=== PATIENT | female | born 1980 | race African-American/Black ===

== ENCOUNTER 2020-07-29 11:25 | Observation (INO) | payer MEDICAID ==
[2020-07-29] MEDS ORDERED: PREN-96 PO (14:05)
== END 2020-07-29 14:13 | disposition home or self-care (01) ==
LOC: LDRP 11:25
PROVIDERS: ADMIT Obstetrics & Gynecology; ATTEND Obstetrics & Gynecology
DX: O40.2XX0 Polyhydramnios, second trimester, not applicable or unspecified (principal); Z3A.25 25 weeks gestation of pregnancy
CPT/HCPCS: 59025; 76815; 81002; G0378

== ENCOUNTER 2020-08-04 11:50 | Observation (INO) | payer MEDICAID ==
[~2020-08-04 11:50] MED LIST: PREN-96 PO
== END 2020-08-04 13:15 | disposition home or self-care (01) ==
LOC: LDRP 11:50
PROVIDERS: ADMIT Specialist; ATTEND Specialist
DX: O40.2XX0 Polyhydramnios, second trimester, not applicable or unspecified (principal); O41.02X0 Oligohydramnios, second trimester, not applicable or unspecified; Z3A.26 26 weeks gestation of pregnancy
CPT/HCPCS: 59025; 81002; 82962; G0378

== ENCOUNTER 2020-08-17 10:20 | Observation (INO) | payer MEDICAID ==
[2020-08-17] MEDS ORDERED: NIF10C PO (11:32)
== END 2020-08-17 12:32 | disposition home or self-care (01) ==
LOC: LDRP 10:20
PROVIDERS: ADMIT Specialist; ATTEND Specialist
DX: O60.02 Preterm labor without delivery, second trimester (principal); O40.2XX0 Polyhydramnios, second trimester, not applicable or unspecified; O24.419 Gestational diabetes mellitus in pregnancy, unspecified control; O26.892 Other specified pregnancy related conditions, second trimester; N89.8 Other specified noninflammatory disorders of vagina; Z3A.27 27 weeks gestation of pregnancy
CPT/HCPCS: 59025; 76818; 81002; 82962; G0378

== ENCOUNTER 2020-08-25 09:10 | Observation (INO) | payer MEDICAID ==
[~2020-08-25 09:10] MED LIST changes: +NIF10C PO
== END 2020-08-25 11:00 | disposition home or self-care (01) ==
LOC: LDRP 09:10
PROVIDERS: ADMIT Specialist; ATTEND Specialist
DX: O60.03 Preterm labor without delivery, third trimester (principal); O40.3XX0 Polyhydramnios, third trimester, not applicable or unspecified; O09.523 Supervision of elderly multigravida, third trimester; O24.410 Gestational diabetes mellitus in pregnancy, diet controlled; Z3A.29 29 weeks gestation of pregnancy
CPT/HCPCS: 59025; 76818; 81002; 82948; 82962; G0378

== ENCOUNTER 2020-08-28 09:06 | Observation (INO) | payer MEDICAID ==
[~2020-08-28] VITALS: Ht 162.6 cm; Wt 78.0 kg
== END 2020-08-28 12:00 | disposition home or self-care (01) ==
LOC: LDRP 09:06 → UNDOADMOB 09:06 → UNDODISOB 12:00
PROVIDERS: ADMIT Obstetrics & Gynecology; ATTEND Obstetrics & Gynecology
DX: O24.419 Gestational diabetes mellitus in pregnancy, unspecified control (principal); O40.3XX0 Polyhydramnios, third trimester, not applicable or unspecified; Z3A.29 29 weeks gestation of pregnancy
CPT/HCPCS: 59025; 76818; 81002; 82948; 82962; G0378

== ENCOUNTER 2020-09-01 09:21 | Observation (INO) | payer MEDICAID ==
[~2020-09-01] VITALS: Ht 162.6 cm; Wt 78.0 kg
== END 2020-09-01 13:05 | disposition home or self-care (01) ==
LOC: LDRP 09:21
PROVIDERS: ADMIT Specialist; ATTEND Specialist
DX: O24.419 Gestational diabetes mellitus in pregnancy, unspecified control (principal); O40.3XX0 Polyhydramnios, third trimester, not applicable or unspecified; O42.913 Preterm premature rupture of membranes, unspecified as to length of time between rupture and onset of labor, third trimester; Z3A.30 30 weeks gestation of pregnancy
CPT/HCPCS: 59025; 76818; 81002; 82948; 82962; 84112; G0378; Q0114

== ENCOUNTER 2020-09-04 09:00 | Observation (INO) | payer MEDICAID | END 2020-09-04 11:18 | disposition home or self-care (01) | LOC: LDRP 09:00 | PROVIDERS: ADMIT Specialist; ATTEND Specialist | DX: O24.419 Gestational diabetes mellitus in pregnancy, unspecified control (principal); O40.3XX0 Polyhydramnios, third trimester, not applicable or unspecified; O60.03 Preterm labor without delivery, third trimester; Z3A.30 30 weeks gestation of pregnancy | CPT/HCPCS: 59025; 76818; 81002; 82962; G0378 ==

== ENCOUNTER 2020-09-08 09:11 | Observation (INO) | payer MEDICAID | END 2020-09-08 10:55 | disposition home or self-care (01) | LOC: LDRP 09:11 | PROVIDERS: ADMIT Specialist; ATTEND Specialist | DX: O24.419 Gestational diabetes mellitus in pregnancy, unspecified control (principal); O60.03 Preterm labor without delivery, third trimester; O40.3XX0 Polyhydramnios, third trimester, not applicable or unspecified; Z3A.31 31 weeks gestation of pregnancy | CPT/HCPCS: 59025; 76818; 81002; 82948; 82962; G0378 ==

== ENCOUNTER 2023-05-25 18:15 | Observation (INO) | payer MEDICAID | END 2023-05-25 19:28 | disposition home or self-care (01) | LOC: LDRP 18:15 | PROVIDERS: ADMIT Obstetrics & Gynecology; ATTEND Obstetrics & Gynecology | DX: O26.892 Other specified pregnancy related conditions, second trimester (principal); R42 Dizziness and giddiness; R51.9 Headache, unspecified; R11.0 Nausea; Z3A.21 21 weeks gestation of pregnancy | CPT/HCPCS: 82948; 82962; 94760; G0378 ==

== ENCOUNTER 2023-08-08 16:20 | Observation (INO) | payer MEDICAID | END 2023-08-08 18:58 | disposition home or self-care (01) | LOC: LDRP 16:20 → UNDOADMOB 16:20 → LDRP 16:30 → UNDODISOB 18:58 | PROVIDERS: ADMIT Obstetrics & Gynecology; ATTEND Obstetrics & Gynecology | DX: O24.419 Gestational diabetes mellitus in pregnancy, unspecified control (principal); O62.9 Abnormality of forces of labor, unspecified; Z3A.31 31 weeks gestation of pregnancy | CPT/HCPCS: 59025; 76818; 81002; 82948; 82962; 94760; G0378 ==

== ENCOUNTER 2023-08-11 17:15 | Observation (INO) | payer MEDICAID ==
[2023-08-11] MEDS ORDERED: GLYB1.257 PO (20:34)
== END 2023-08-11 20:48 | disposition home or self-care (01) ==
LOC: LDRP 17:15
PROVIDERS: ADMIT Obstetrics & Gynecology; ATTEND Obstetrics & Gynecology
DX: O24.419 Gestational diabetes mellitus in pregnancy, unspecified control (principal); O62.9 Abnormality of forces of labor, unspecified; Z3A.31 31 weeks gestation of pregnancy
CPT/HCPCS: 59025; 76818; 81002; 82948; 82962; G0378

== ENCOUNTER 2023-08-13 16:10 | Observation (INO) | payer MEDICAID ==
[~2023-08-13 16:10] MED LIST changes: +GLYB1.257 PO
== END 2023-08-13 17:31 | disposition home or self-care (01) ==
LOC: LDRP 16:10
PROVIDERS: ADMIT Obstetrics & Gynecology; ATTEND Obstetrics & Gynecology
DX: O24.419 Gestational diabetes mellitus in pregnancy, unspecified control (principal); O26.893 Other specified pregnancy related conditions, third trimester; H53.8 Other visual disturbances; Z3A.32 32 weeks gestation of pregnancy
CPT/HCPCS: 59025; 76818; 81002; 82948; G0378

== ENCOUNTER 2023-08-16 16:05 | Observation (INO) | payer MEDICAID | END 2023-08-16 17:45 | disposition home or self-care (01) | LOC: LDRP 16:05 | PROVIDERS: ADMIT Obstetrics & Gynecology; ATTEND Obstetrics & Gynecology | DX: O24.419 Gestational diabetes mellitus in pregnancy, unspecified control (principal); Z3A.32 32 weeks gestation of pregnancy | CPT/HCPCS: 59025; 76818; 81002; 82948; 94760; G0378 ==

== ENCOUNTER 2023-08-21 16:16 | Observation (INO) | payer MEDICAID ==
[~2023-08-21] VITALS: Ht 162.6 cm; Wt 74.4 kg
[2023-08-21] MEDS ORDERED: LACTATED RINGER'S 1,000 ML IV ONE (17:15)
[2023-08-21] MEDS ORDERED: TERBUTALINE SULFATE 1 MG/ML 1ML VIAL SC SCH (17:15)
== END 2023-08-21 18:15 | disposition home or self-care (01) ==
LOC: LDRP 16:16 → UNDOADMOB 16:16 → LDRP 16:20 → UNDODISOB 18:15
PROVIDERS: ADMIT Obstetrics & Gynecology; ATTEND Obstetrics & Gynecology
DX: O24.419 Gestational diabetes mellitus in pregnancy, unspecified control (principal); O62.9 Abnormality of forces of labor, unspecified; Z3A.33 33 weeks gestation of pregnancy
CPT/HCPCS: 59025; 76818; 81002; 82948; 82962; 94760; 96360; 96361; 96372; G0378; J3105

== ENCOUNTER 2023-08-24 12:24 | Observation (INO) | payer MEDICAID ==
[~2023-08-24 12:24] MED LIST changes: -NIF10C PO
== END 2023-08-24 14:48 | disposition home or self-care (01) ==
LOC: UNDOADMOB 12:24 → LDRP 12:24
PROVIDERS: ADMIT Obstetrics & Gynecology; ATTEND Obstetrics & Gynecology
DX: O24.419 Gestational diabetes mellitus in pregnancy, unspecified control (principal); Z3A.34 34 weeks gestation of pregnancy
CPT/HCPCS: 76818; 82962; G0378; 59025; 81002; 82948; 94760

== ENCOUNTER 2023-08-28 16:15 | Observation (INO) | payer MEDICAID | END 2023-08-28 17:29 | disposition home or self-care (01) | LOC: LDRP 16:15 → UNDOADMOB 16:15 → LDRP 16:21 → UNDODISOB 17:29 | PROVIDERS: ADMIT Obstetrics & Gynecology; ATTEND Obstetrics & Gynecology | DX: O24.419 Gestational diabetes mellitus in pregnancy, unspecified control (principal); O26.893 Other specified pregnancy related conditions, third trimester; R10.30 Lower abdominal pain, unspecified; Z3A.34 34 weeks gestation of pregnancy | CPT/HCPCS: 59025; 76818; 81002; 82948; 94760; G0378 ==

== ENCOUNTER 2023-08-31 16:14 | Observation (INO) | payer MEDICAID | END 2023-08-31 17:40 | disposition home or self-care (01) | LOC: LDRP 16:14 | PROVIDERS: ADMIT Obstetrics & Gynecology; ATTEND Obstetrics & Gynecology | DX: O24.419 Gestational diabetes mellitus in pregnancy, unspecified control (principal); Z3A.35 35 weeks gestation of pregnancy | CPT/HCPCS: 59025; 76818; 81002; 82962; 94760; G0378 ==

== ENCOUNTER 2023-09-04 15:58 | Observation (INO) | payer MEDICAID ==
[2023-09-04] MEDS ORDERED: TERBUTALINE SULFATE 1 MG/ML 1ML VIAL SC ONE ×2 (18:45)
== END 2023-09-04 19:50 | disposition home or self-care (01) ==
LOC: LDRP 15:58 → UNDOADMOB 15:58 → LDRP 16:28 → UNDODISOB 19:50
PROVIDERS: ADMIT Obstetrics & Gynecology; ATTEND Obstetrics & Gynecology
DX: O24.419 Gestational diabetes mellitus in pregnancy, unspecified control (principal); O26.893 Other specified pregnancy related conditions, third trimester; N89.8 Other specified noninflammatory disorders of vagina; Z3A.35 35 weeks gestation of pregnancy
CPT/HCPCS: 59025; 76818; 81002; 82962; 94760; 96372; G0378; J3105

== ENCOUNTER 2023-09-07 08:02 | Observation (INO) | payer MEDICAID | END 2023-09-07 10:22 | disposition home or self-care (01) | LOC: LDRP 08:02 → UNDOADMOB 08:02 → LDRP 08:19 | PROVIDERS: ADMIT Obstetrics & Gynecology; ATTEND Obstetrics & Gynecology | DX: O24.419 Gestational diabetes mellitus in pregnancy, unspecified control (principal); O36.63X0 Maternal care for excessive fetal growth, third trimester, not applicable or unspecified; O62.9 Abnormality of forces of labor, unspecified; Z3A.36 36 weeks gestation of pregnancy | CPT/HCPCS: 59025; 76818; 81002; 82948; 82962; 94760; G0378 ==

== ENCOUNTER 2023-09-08 17:09 | Observation (INO) | payer MEDICAID | END 2023-09-08 18:03 | disposition home or self-care (01) | LOC: LDRP 17:09 | PROVIDERS: ADMIT Obstetrics & Gynecology; ATTEND Obstetrics & Gynecology | DX: O62.9 Abnormality of forces of labor, unspecified (principal); O24.419 Gestational diabetes mellitus in pregnancy, unspecified control; O26.893 Other specified pregnancy related conditions, third trimester; N89.8 Other specified noninflammatory disorders of vagina; R10.30 Lower abdominal pain, unspecified; Z3A.36 36 weeks gestation of pregnancy | CPT/HCPCS: 59025; 94760; G0378 ==

== ENCOUNTER 2023-09-11 16:00 | Observation (INO) | payer MEDICAID | END 2023-09-11 17:50 | disposition home or self-care (01) | LOC: UNDOADMOB 16:00 → LDRP 16:00 → UNDODISOB 17:50 | PROVIDERS: ADMIT Obstetrics & Gynecology; ATTEND Obstetrics & Gynecology | DX: O24.419 Gestational diabetes mellitus in pregnancy, unspecified control (principal); O62.9 Abnormality of forces of labor, unspecified; O26.893 Other specified pregnancy related conditions, third trimester; R10.9 Unspecified abdominal pain; Z3A.36 36 weeks gestation of pregnancy | CPT/HCPCS: 59025; 76818; 81002; 82948; 82962; 94760; G0378 ==

== ENCOUNTER 2023-09-14 16:18 | Observation (INO) | payer MEDICAID | END 2023-09-14 18:55 | disposition home or self-care (01) | LOC: UNDOADMOB 16:18 → LDRP 16:18 → UNDODISOB 18:55 | PROVIDERS: ADMIT Obstetrics & Gynecology; ATTEND Obstetrics & Gynecology | DX: O24.419 Gestational diabetes mellitus in pregnancy, unspecified control (principal); O26.893 Other specified pregnancy related conditions, third trimester; R10.9 Unspecified abdominal pain; O09.523 Supervision of elderly multigravida, third trimester; Z3A.37 37 weeks gestation of pregnancy | CPT/HCPCS: 59025; 76818; 81002; 82948; 82962; 94760; G0378 ==

== ENCOUNTER 2023-09-18 16:30 | Observation (INO) | payer MEDICAID | END 2023-09-18 18:57 | disposition home or self-care (01) | LOC: LDRP 16:30 | PROVIDERS: ADMIT Obstetrics & Gynecology; ATTEND Obstetrics & Gynecology | DX: O24.419 Gestational diabetes mellitus in pregnancy, unspecified control (principal); O36.63X0 Maternal care for excessive fetal growth, third trimester, not applicable or unspecified; O40.3XX0 Polyhydramnios, third trimester, not applicable or unspecified; Z3A.37 37 weeks gestation of pregnancy | CPT/HCPCS: 59025; 76818; 81002; 82948; 82962; 94760; G0378 ==

== ENCOUNTER 2023-09-20 16:05 | Inpatient (IN) | payer MEDICAID ==
[~2023-09-20] VITALS: Ht 162.6 cm; Wt 78.0 kg
[2023-09-20] MEDS ORDERED: PROMETHAZINE HCL 25 MG/ML 1ML IM PRN (16:45)
[2023-09-20] MEDS ORDERED: DERMOPLAST 60ML BOTTLE TOP PRN (16:45)
[2023-09-20] MEDS ORDERED: PHISODERM TOP SOLN 240ML BTL TOP PRN (16:45)
[2023-09-20] MEDS ORDERED: BUTORPHANOL TARTRATE 2 MG/1 ML VIAL IV PRN ×2 (16:45)
[2023-09-20] MEDS ORDERED: PROMETHAZINE HCL 25 MG/ML 1ML IV PRN (16:45)
[2023-09-20] MEDS ORDERED: LACT. RINGERS/OXYTOCIN 20UNITS 500 ML IV ONE ×2 (16:45→17:15)
[2023-09-20] MEDS ORDERED: LIDOCAINE 2%HCL (LOCAL ANESTH.) INJ 20ML MDV IJ PRN (16:45)
[2023-09-20] MEDS ORDERED: WITCH HAZEL-GLYCERIN PAD TOP PRN (16:45)
[2023-09-20] MEDS: LACTATED RINGER'S 1,000 ML IV SCH (17:23)
[2023-09-20 17:29] LABS: Basophils # (auto) 0 10 ^3/uL (0-0.2); Basophils % (auto) 0.7 % (0.0-2.0); Eosinophils # (auto) 0 10 ^3/uL (0-0.8); Eosinophils % (auto) 0.8 % (0.0-7.0); Hematocrit 36.1 % (36.0-46.0); Hemoglobin 12.4 g/dL (12.2-16.2); Lymphocytes # (auto) 1.3 10 ^3/uL (0.4-5.4); Lymphocytes % (auto) 34.6 % (10.0-50.0); Mean Corpuscular Hemoglobin 28.7 pg (28.0-32.0); Mean Corpuscular Hgb Conc. 34.4 g/dL (32.0-36.0); Mean Corpuscular Volume 83.3 fL (80.0-100.0); Monocytes # (auto) 0.4 10 ^3/uL (0-1.3); Monocytes % (auto) 10.7 % (0.0-12.0); Neutrophils # (auto) 2.1 10 ^3/uL (1.6-8.6); Neutrophils % (auto) 53.2 % (37.0-80.0); Nucleated Red Blood Cells % 0.1 %; Red Blood Cells 4.34 10^6/uL (4.0-5.20); Red Cell Distribution Width 14.4 % (11.8-14.3); White Blood Cell 3.9 10^3/uL (4.4-10.8)
[2023-09-20 17:33] LABS: Urine Amorphous Crystal FEW /hpf (None Seen); Urine Bacteria FEW /hpf (None Seen); Urine Blood Negative /uL (Negative); Urine Clarity HAZY (Clear); Urine Color Yellow (Yellow); Urine Mucus FEW (None Seen); Urine Protein, UAD TRACE (Negative); Urine Specific Gravity 1.011 (1.001-1.035); Urine WBC 13 /hpf (0 - 5)
[2023-09-20 17:49] LABS: INR 0.93 (0.9-1.15); Partial Thromboplastin Time 30.5 SEC (24.5-34.5); Prothrombin Time 9.8 sec (9.3-11.8)
[2023-09-20 17:51] LABS: Amphetamine Screen, Urine Neg (NEGATIVE); Barbiturate Scree,Urine Neg (NEGATIVE); Benzodiazephine Screen, Urine Neg (NEGATIVE); Cannabinoid Screen, Urine Neg (NEGATIVE); Cocaine Screen, Urine Neg (NEGATIVE); Opiate Scree,Urine Neg (NEGATIVE); Phencyclidine Screen, Urine Neg (NEGATIVE)
[2023-09-20 17:53] LABS: Alanine Aminotransferase 28 U/L (7-40); Albumin 3.5 g/dL (3.2-4.8); Alkaline Phosphatase 233 U/L (46-116); Anion Gap 6 (5-15); Aspartate Aminotransferase 24 U/L (13-40); Calcium 8.7 mg/dL (8.7-10.4); Carbon Dioxide 25 mmol/L (20-30); Chloride 107 mmol/L (98-107); Glucose 81 mg/dL (74-106); Potassium 3.3 mmol/L (3.5-5.1); Sodium 138 mmol/L (136-145)
[2023-09-20 17:54] LABS: Bilirubin, Total 1.5 mg/dL (0.2-1.0); Total Protein 6.2 g/dL (5.7-8.2)
[2023-09-20] MEDS ORDERED: ACCU-CHEK COMFORT CURVE STRIP VI SCH (18:00)
[2023-09-20 18:44] LABS: BUN/Creatinine Ratio 11.1 (10.0-20.0); Blood Urea Nitrogen < 5 mg/dL (9-23)
[2023-09-20] MEDS ORDERED: TRANEXAMIC ACID 1,000 MG in SODIUM CHL 0.9% 100 ML IV ONE (19:45)
[2023-09-20] MEDS ORDERED: CARBOPROST TROMETHAMINE 250 MCG/1ML VIAL IM PRN (19:45)
[2023-09-20] MEDS ORDERED: miSOPROStol 100 mcg TAB PR PRN (19:45)
[2023-09-20] MEDS ORDERED: diphenhdrAMINE HCL 50 MG/1 ML VL IV PRN (19:45)
[2023-09-20] MEDS ORDERED: ONDANSETRON HCL 4 MG/2 ML VIAL IV PRN (19:45)
[2023-09-20] MEDS ORDERED: miSOPROStol 100 mcg TAB SL PRN (19:45)
[2023-09-20] MEDS ORDERED: METHYLERGONOVINE MALEATE 0.2 MG/ML AMP IM PRN (19:45)
[2023-09-20] MEDS ORDERED: CALCIUM CARB 500 MG CHEW TAB PO ONE (21:45)
[2023-09-20] MEDS ORDERED: PANTOPRAZOLE 40 MG TAB PO PRN (22:00)
[2023-09-20] MEDS ORDERED: DIPHENOXYLATE W/ATROPINE 2.5 MG TAB PO SCH (22:00)
[2023-09-21] MEDS ORDERED: miSOPROStol 50 MCG per PRE-CUT 1/2 TAB PO PRN (01:15)
[2023-09-21] MEDS: LACTATED RINGER'S 1,000 ML IV SCH (01:45)
[2023-09-21] MEDS ORDERED: TERBUTALINE SULFATE 1 MG/ML 1ML VIAL SC ONE (02:04)
[2023-09-21] MEDS ORDERED: BUTORPHANOL TARTRATE 2 MG/1 ML VIAL ONE (02:23)
[2023-09-21] MEDS ORDERED: ceFAZolin 2 GM/D5W100ml 100 ML IV ONE (02:30)
[2023-09-21] MEDS ORDERED: TERBUTALINE SULFATE 1 MG/ML 1ML VIAL SC SCH (02:45)
[2023-09-21] MEDS ORDERED: fentaNYL CITRATE 100 MCG/2 ML VL IV ONE (05:45)
[2023-09-21] MEDS ORDERED: LIDOCAINE HCL 2 %PF INJ 10ML AMP IJ ONE (05:45)
[2023-09-21] MEDS ORDERED: LACTATED RINGER'S 500 ML IV ONE (05:45)
[2023-09-21] MEDS ORDERED: fentaNYL 400mCg/200ml W ROPIVA 200 ML EPI SCH (05:45)
[2023-09-21] MEDS ORDERED: NALOXONE HCL 0.4 MG/ML VIAL IV ONE (05:45)
[2023-09-21] MEDS ORDERED: ePHEDrine SULFATE 50 MG/ML AMP IV ONE (05:45)
[2023-09-21 06:06] LABS: RPR Non Reactive (Non Reactive)
[2023-09-21] MEDS ORDERED: ROPIVACAINE HCL 100 ML ONE (06:23)
[2023-09-21] MEDS ORDERED: ACETAMINOPHEN 325 MG TAB PO PRN (08:15)
[2023-09-21] MEDS ORDERED: ONDANSETRON ODT 4 MG TAB PO PRN (08:15)
[2023-09-21] MEDS: IBUPROFEN 600 MG TAB PO PRN ×2 (09:45→18:40)
[2023-09-21 10:50] VITALS: PULSE 86; RESP 18; O2SAT 98
[2023-09-21] MEDS: ceFAZolin 1GM/50ML 50 ML IV SCH ×2 (11:08→18:40)
[2023-09-21 15:00] VITALS: BP 116/65; PULSE 77; RESP 16; TEMP 98.2; O2SAT 97
[2023-09-21] MEDS ORDERED: IBU600T PO (17:43)
[2023-09-21 18:45] VITALS: BP 113/60; PULSE 80; RESP 16; TEMP 98.2; O2SAT 96
[2023-09-21 20:41] VITALS: BP 113/60; PULSE 80; RESP 16; TEMP 98.2; O2SAT 96
[2023-09-21] MEDS ORDERED: DOCUSATE SOD 100 MG CAP PO SCH (22:00)
[2023-09-24 19:06] LABS: Treponema pallidum Ab (FTA-Ab) Non Reactive (Non Reactive)
== END 2023-09-21 20:31 | disposition home or self-care (01) | DRG 560 ==
LOC: NUR 16:05 → LDRP 16:10
PROVIDERS: ADMIT Obstetrics & Gynecology; ATTEND Obstetrics & Gynecology
PROC: 10E0XZZ Delivery of Products of Conception, External Approach (ICD-10-PCS; principal; 2023-09-20)
PROC: 3E0R3BZ Introduction of Anesthetic Agent into Spinal Canal, Percutaneous Approach (ICD-10-PCS; 2023-09-20)
PROC: 00HU33Z Insertion of Infusion Device into Spinal Canal, Percutaneous Approach (ICD-10-PCS; 2023-09-20)
DX: O24.429 Gestational diabetes mellitus in childbirth, unspecified control (principal); Z37.0 Single live birth; O36.63X0 Maternal care for excessive fetal growth, third trimester, not applicable or unspecified; Z3A.38 38 weeks gestation of pregnancy
CPT/HCPCS: 36415; 59025; 59409; 62282; 80053; 80307; 81001; 81002; 82962; 85025; 85610; 85730; 86592; 86850; 86900; 86901; 94760; 96360; 96361; 96366; 96372; G0378; J2590

== ENCOUNTER 2025-03-31 10:22 | Observation (INO) | payer MEDICAID ==
[~2025-03-31 10:22] MED LIST changes: -GLYB1.257 PO; +IBU600T PO
[2025-03-31 11:28] LABS: Urine Protein, UAD Negative (Negative)
[2025-03-31 11:33] LABS: Albumin 3.7 g/dL (3.2-4.8); Alkaline Phosphatase 74 U/L (46-116); Anion Gap 7 (5-15); BUN/Creatinine Ratio 8.9 (10.0-20.0); Calcium 9.0 mg/dL (8.7-10.4); Carbon Dioxide 25 mmol/L (20-31); Chloride 105 mmol/L (98-107); Potassium 3.5 mmol/L (3.5-5.1); Sodium 137 mmol/L (136-145); Total Protein 6.1 g/dL (5.7-8.2); Uric Acid 3.6 mg/dL (3.1-7.8)
[2025-03-31 11:34] LABS: Bilirubin, Total 0.9 mg/dL (0.2-1.0)
[2025-03-31 11:36] LABS: Alanine Aminotransferase < 9 U/L (7-40); Blood Urea Nitrogen 5 mg/dL (9-23); Glucose 132 mg/dL (74-106)
[2025-03-31 11:41] LABS: Hematocrit 34.0 % (36.0-46.0); Hemoglobin 11.8 g/dL (12.2-16.2); Mean Corpuscular Hemoglobin 29.3 pg (28.0-32.0); Mean Corpuscular Volume 84.7 fL (80.0-100.0); Nucleated Red Blood Cells % 0.2 %
[2025-03-31 11:58] LABS: Protein, Urine 19.7 mg/dL (1-14)
[2025-03-31 11:58] LABS: INR 0.98 (0.9-1.15); Partial Thromboplastin Time 28.0 SEC (24.5-34.5); Prothrombin Time 10.4 sec (9.3-11.8)
--- NOTE | 2025-03-31 17:54 | DVHDS2 ---
Physician Discharge Progress N Final Diagnosis: testing for GDM, A1 and PIH labs Operations or Procedures: Operations or Procedures 44yo IUP@29.1wks, sent down for NST/BPP and PIH labs. Denies UCs/LOF/VB/SIMMONS/vision changes/RUQ pain. Endorses +FM. VSS NST reactive FKC/PTL/PreE precautions reviewed f/u in 1 wk with [address] Hess consulted, agrees with POC Laboratory Tests Test 03/31/25 10:15 03/31/25 10:50 Range/Units Urine Color Light-orange Yellow Urine Clarity Turbid H Clear Urine pH 6.0 5.0-9.0 Urine Specific [place] 1.013 1.001-1.035 Urine Protein Negative Negative Urine Ketones Trace Negative Urine Blood Negative Negative /uL Urine Nitrite Negative Negative Urine Bilirubin Negative Negative Urine Urobilinogen Normal Negative mg/dL Urine Leukocyte Esterase Negative Negative /uL Urine RBC 2 0 - 4 /hpf Urine Microscopic WBC 2 0-5 /HPF Urine Squamous Epithelial Cells Many <5 /hpf Urine Bacteria Few H None Seen /hpf Urine Mucus Few None Seen Urine Creatinine 90.42 30.0-125.0 mg/dL Creatinine Clearance Pending Urine Protein/Creatinine Ratio 0.22 Urine Glucose Normal Normal mg/dL Urine Total Protein 19.7 H 1-14 mg/dL Creatinine Pending 0.56 0.550-1.02 mg/dL White Blood Count 6.0 4.4-10.8 10^3/uL Red Blood Count 4.02 4.0-5.20 10^6/uL Hemoglobin 11.8 L 12.2-16.2 g/dL Hematocrit 34.0 L 36.0-46.0 % Mean Corpuscular Volume 84.7 80.0-100.0 fL Mean Corpuscular Hemoglobin 29.3 28.0-32.0 pg Mean Corpuscular Hemoglobin Concent 34.6 32.0-36.0 g/dL Red Cell Distribution Width 14.6 H 11.8-14.3 % Platelet Count 185 140-450 10^3/uL Mean Platelet Volume 9.3 6.9-10.8 fL Neutrophils (%) (Auto) 65.6 37.0-80.0 % Lymphocytes (%) (Auto) 24.9 10.0-50.0 % Monocytes (%) (Auto) 7.5 0.0-12.0 % Eosinophils (%) (Auto) 1.6 0.0-7.0 % Basophils (%) (Auto) 0.4 0.0-2.0 % Neutrophils # (Auto) 3.9 1.6-8.6 10 ^3/uL Lymphocytes # (Auto) 1.5 0.4-5.4 10 ^3/uL Monocytes # (Auto) 0.5 0-1.3 10 ^3/uL Eosinophils # (Auto) 0.1 0-0.8 10 ^3/uL Basophils # (Auto) 0 0-0.2 10 ^3/uL Nucleated Red Blood Cells 0.2 % Prothrombin Time 10.4 9.3-11.8 sec Prothrombin Time INR 0.98 0.9-1.15 Activated Partial Thromboplast Time 28.0 24.5-34.5 SEC Sodium Level 137 136-145 mmol/L Potassium Level 3.5 3.5-5.1 mmol/L Chloride Level 105 98-107 mmol/L Carbon Dioxide Level 25 20-31 mmol/L Anion Gap 7 5-15 Blood Urea Nitrogen 5 L 9-23 mg/dL Glomerular Filtration Rate Calc 116 >90 mL/min BUN/Creatinine Ratio 8.9 L 10.0-20.0 Serum Glucose 132 H 74-106 mg/dL Uric Acid 3.6 3.1-7.8 mg/dL Calcium Level 9.0 8.7-10.4 mg/dL Total Bilirubin 0.9 0.2-1.0 mg/dL Aspartate Amino Transferase (AST) 13 13-40 U/L Alanine Aminotransferase (ALT) < 9 7-40 U/L Alkaline Phosphatase 74 46-116 U/L Total Protein 6.1 5.7-8.2 g/dL Albumin 3.7 3.2-4.8 g/dL Condition on Discharge: Stable Disposition: Home Discharge Instructions: Diet: Consistent carbohydrate Activity: No Restrictions, As Tolerated Medications: see med list Follow Up Care: Specialist: f/u in 1 wk Discharge Statement: "Patient was advised to return to the ER or call 911 if any headaches, dizziness, shortness of breath, chest pain, abdominal pain, bleeding, fevers, or worsening of medical condition. Patient was counseled about treatment plan, medications, possible side effects, patientverbalized understanding. All questions were answered to the best of my ability. This discharge took greater then 30 minutes in planning, reviewing documentation, counseling the patient, and discussing with other team members." Visit Coding OBGYN Date of Service: Mar 31, 2025 Billing Provider: CARO CARABALLO CNM GARAGE MECHANIC Common Visit Codes: [id number] OBS CARE (HIGH) GARAGE MECHANIC Procedure Codes: 47956-63- NON-STRESS TEST CARO CARABALLO CNM Mar 31, 2025 17:54
== END 2025-03-31 12:35 | disposition home or self-care (01) ==
LOC: LDRP 10:22 → UNDOADMOB 10:22 → LDRP 10:33 → UNDODISOB 12:35
PROVIDERS: ADMIT Obstetrics & Gynecology; ATTEND Obstetrics & Gynecology
DX: O24.419 Gestational diabetes mellitus in pregnancy, unspecified control (principal); O13.3 Gestational [pregnancy-induced] hypertension without significant proteinuria, third trimester; Z3A.29 29 weeks gestation of pregnancy; Z98.890 Other specified postprocedural states; Z79.899 Other long term (current) drug therapy
CPT/HCPCS: 59025; 80053; 81001; 81002; 82570; 84156; 84550; 85610; 85730; 94760; G0378

== ENCOUNTER 2025-04-07 11:47 | Observation (INO) | payer MEDICAID ==
[~2025-04-07] VITALS: Ht 162.6 cm; Wt 72.6 kg
[2025-04-07] MEDS: NIFEdipine 10 MG CAP PO ONE (13:27)
[2025-04-07] MEDS: TERBUTALINE SULFATE 1 MG/ML 1ML VIAL SC SCH (13:27)
[2025-04-07] MEDS: BETAMETHASONE ACET (30mg/5ml) 5ml Vial 6mg/ml IM ONE (13:28)
[2025-04-07] MEDS: LACTATED RINGER'S 1,000 ML IV ONE (13:28)
--- NOTE | 2025-04-07 13:58 | DVH ---
LIMITED OB ULTRASOUND > 14 WKS: HISTORY: PTL TECHNIQUE: Multiple real-time grayscale images of the gravid uterus with duplex Doppler color flow an d M-mode spectral analysis. TRANSDUCER: Transabdominal COMPARISON: None FINDINGS/IMPRESSION: heart rate 142 beats per minute KARINA 22.6cm, deepest pocket measures 6.3 cm Cervix is closed and measures 2.9 cm. Anterior Presentation Maternal left Placenta without previa or abruption.
[2025-04-07] MEDS ORDERED: NIFE10CA52 PO (14:29)
--- NOTE | 2025-04-07 18:03 | DVHDS2 ---
Physician Discharge Progress N Final Diagnosis: PTL testing for GDM, A1 rule out preE Operations or Procedures: Operations or Procedures 44yo IUP@30.1wks, Denies LOF/VB/SIMMONS/vision changes/RUQ pain. Endorses +FM. +UCs/cramping. Pt did not collect 24 hour urine correctly, needs to redo it. VSS except hypertension NST reactive 1L LR IV bolus, procardia 10mg PO x1, betamethasone IM first dose given. FKC/PTL/PreE precautions reviewed Dr. Hess consulted, agrees with POC. Rx sent for procardia 10mg PO q4hrs. f/u 04/08/25 for second betamethasone. Other Interventions Other Interventions [place] [address] Ph: [phone] DIAGNOSTIC IMAGING Diagnostic Imaging Report : [id number] Signed PATIENT: ALFONSO PATE ACCT: [id number] UNIT: [id number] : 1980 LOC: [facility] ROOM / BED: [facility] / A AGE / SEX: 44 / F ADM STATUS: ADM IN SERVICE 1250 ORDERING PHYSICIAN: CARO CARABALLO CNM PROCEDURE(s): OBLTD - OBSTERICAL LIMITED REASON: PTL ORDER NUMBER(s): [id number], ACCESSION NUMBER(s): [id number] LIMITED OB ULTRASOUND > 14 WKS: HISTORY: PTL TECHNIQUE: Multiple real-time grayscale images of the gravid uterus with duplex Doppler color flow and M-mode spectral analysis. TRANSDUCER: Transabdominal COMPARISON: None FINDINGS/IMPRESSION: heart rate 142 beats per minute KARINA 22.6cm, deepest pocket measures 6.3 cm Cervix is closed and measures 2.9 cm. Anterior Presentation Maternal left Placenta without previa or abruption. ATED BY: WILLIS YA MD DICTATED DATE/TIME: 04/07/25 1356 SIGNED BY: WILLIS YA MD SIGNED DATE/TIME: 04/07/25 135 CC: Condition on Discharge: Stable Disposition: Home Discharge Instructions: Diet: Consistent carbohydrate Activity: See Comment Activity comment: pelvic rest Medications: see med list Follow Up Care: Specialist: f/u 04/08/25 for second betamethasone. Discharge Statement: "Patient was advised to return to the ER or call 911 if any headaches, dizziness, shortness of breath, chest pain, abdominal pain, bleeding, fevers, or worsening of medical condition. Patient was counseled about treatment plan, medications, possible side effects, patientverbalized understanding. All questions were answered to the best of my ability. This discharge took greater then 30 minutes in planning, reviewing documentation, counseling the patient, and discussing with other team members." Visit Coding OBGYN Date of Service: Apr 07, 2025 Billing Provider: CARO CARABALLO CNM ROASTERMAN Common Visit Codes: [id number] OBS CARE (HIGH) ROASTERMAN Procedure Codes: 34130-39- NON-STRESS TEST CARO CARABALLO CNM Apr 07, 2025 18:03
== END 2025-04-07 14:46 | disposition home or self-care (01) ==
LOC: LDRP 11:47 → UNDOADMOB 11:47 → LDRP 12:09
PROVIDERS: ADMIT Obstetrics & Gynecology; ATTEND Obstetrics & Gynecology
DX: O60.03 Preterm labor without delivery, third trimester (principal); O24.419 Gestational diabetes mellitus in pregnancy, unspecified control; Z3A.30 30 weeks gestation of pregnancy; Z98.890 Other specified postprocedural states; Z79.899 Other long term (current) drug therapy
CPT/HCPCS: 59025; 76815; 81002; 82948; 94760; 96360; 96361; 96372; G0378; J0702; J3105

== ENCOUNTER 2025-04-08 14:07 | Observation (INO) | payer MEDICAID ==
[~2025-04-08 14:07] MED LIST changes: -IBU600T PO; +NIFE10CA52 PO
[2025-04-08] MEDS: BETAMETHASONE ACET (30mg/5ml) 5ml Vial 6mg/ml IM ONE (15:41)
--- NOTE | 2025-04-08 15:43 | DVHDS2 ---
Physician Discharge Progress N Final Diagnosis: second dose of betamethasone Secondary Diagnosis: GDM, A1 PTL rule out PreE Operations or Procedures: Operations or Procedures 44yo IUP@30.2wks here for second dose of betamethasone. Pt came in yesterday 04/07/25 with an incorrect 24 hour urine collection for rule out preE. +FM, Denies UCs/LOF/VB/SIMMONS/vision changes/RUQ pain. VSS, normotensive NST reactive, appropriate for GA 2nd dose of betamethasone given RN to give patient detailed instructions on how to collect 24 hour urine correctly. FKC/PTL/PreE precautions reviewed Dr. Hess consulted, agrees with POC. Pt has f/u with JASPER Jameson on 04/13/25 for care and GDM mgmt. Condition on Discharge: Stable Disposition: Home Discharge Instructions: Diet: Consistent carbohydrate Activity: See Comment Activity comment: pelvic rest Medications: see med list Follow Up Care: Specialist: f/u in 1wk Discharge Statement: "Patient was advised to return to the ER or call 911 if any headaches, dizziness, shortness of breath, chest pain, abdominal pain, bleeding, fevers, or worsening of medical condition. Patient was counseled about treatment plan, medications, possible side effects, patientverbalized understanding. All questions were answered to the best of my ability. This discharge took greater then 30 minutes in planning, reviewing documentation, counseling the patient, and discussing with other team members." Visit Coding OBGYN Date of Service: Apr 08, 2025 Billing Provider: CARO CARABALLO CNM BRUSH POLISHER Common Visit Codes: [id number] OBS CARE (HIGH) BRUSH POLISHER Procedure Codes: 27458-69- NON-STRESS TEST CARO CARABALLO CNM Apr 08, 2025 15:43
== END 2025-04-08 15:56 | disposition home or self-care (01) ==
LOC: LDRP 14:07
PROVIDERS: ADMIT Obstetrics & Gynecology; ATTEND Obstetrics & Gynecology
DX: O24.419 Gestational diabetes mellitus in pregnancy, unspecified control (principal); O99.323 Drug use complicating pregnancy, third trimester; F15.10 Other stimulant abuse, uncomplicated; Z3A.30 30 weeks gestation of pregnancy; Z79.899 Other long term (current) drug therapy; Z98.890 Other specified postprocedural states
CPT/HCPCS: 59025; 81002; 82948; 82962; 94760; 96372; G0378

== ENCOUNTER 2025-04-10 18:51 | Observation (INO) | payer MEDICAID ==
--- NOTE | 2025-04-14 12:57 | DVHDS2 ---
Physician Discharge Progress N Final Diagnosis: gdm Operations or Procedures: Operations or Procedures nst reactive reviwedarjuno Condition on Discharge: Good Disposition: Home Discharge Instructions: Diet: Consistent carbohydrate Activity: Light activity Medications: na Follow Up Care: Specialist: 3d Discharge Statement: "Patient was advised to return to the ER or call 911 if any headaches, dizziness, shortness of breath, chest pain, abdominal pain, bleeding, fevers, or worsening of medical condition. Patient was counseled about treatment plan, medications, possible side effects, patientverbalized understanding. All questions were answered to the best of my ability. This discharge took greater then 30 minutes in planning, reviewing documentation, counseling the patient, and discussing with other team members." Visit Coding OBGYN Date of Service: Apr 10, 2025 Billing Provider: SANDY MESSINA DO COLLATERAL CLERK Common Visit Codes: [id number] OBS CARE (HIGH) COLLATERAL CLERK Procedure Codes: 24536-27- NON-STRESS TEST SANDY MESSINA DO Apr 14, 2025 12:57
== END 2025-04-10 20:54 | disposition home or self-care (01) ==
LOC: LDRP 18:51
PROVIDERS: ADMIT Obstetrics & Gynecology; ATTEND Obstetrics & Gynecology
DX: Z36.89 Encounter for other specified antenatal screening (principal); Z3A.30 30 weeks gestation of pregnancy; Z79.899 Other long term (current) drug therapy
CPT/HCPCS: 59025; 81002; 82948; 82962; 94760; G0378

== ENCOUNTER 2025-04-14 11:05 | Observation (INO) | payer MEDICAID ==
[2025-04-14 12:49] LABS: Protein, Urine 23.6 mg/dL (1-14)
[2025-04-14 12:57] LABS: Urine Protein, UAD Negative (Negative)
[2025-04-14 13:18] LABS: Protein, Urine 13.9 mg/dL (1-14)
[2025-04-14 13:29] LABS: 24 Hr. Total Protein, Urine 264.1 mg/24 Hr (<149.1); Urine Total Volume, 24 Hours 1900.0 mL
--- NOTE | 2025-04-14 13:52 | DVH ---
LIMITED OB ULTRASOUND > 14 WKS: HISTORY: cervical length TECHNIQUE: Multiple real-time grayscale images of the gravid uterus with duplex Doppler color flow an d M-mode spectral analysis. TRANSDUCER: TA FINDINGS: Anterior placenta. Cephalic presentation. heart rate 152 beats per minute. KARINA equals 26.9 cm . Cervix is closed measuring 3.3 cm. IMPRESSION: Cervix is closed measuring 3.3 cm. Polyhydramnios, KARINA equals 26.9 cm
--- NOTE | 2025-04-14 14:04 | DVHDS2 ---
Physician Discharge Progress N Final Diagnosis: testing for GDM,A1/hypothyroidism/ arrythmia Secondary Diagnosis: polyhydramnios Operations or Procedures: Operations or Procedures 44yo IUP@31.1wks, +FM, denies UCs/LOF/VB/SIMMONS/vision changes/RUQ pain. VSS, normotensive NST reactive FKC/PTL precautions reviewed Dr. Hess consulted, agrees with POC. Laboratory Tests Test 04/14/25 08:00 04/14/25 11:05 04/14/25 11:58 Range/Units Urine Total Protein 24 Hour 264.1 <149.1 mg/24 Hr Urine Total Protein 13.9 23.6 H 1-14 mg/dL Urine Color Yellow Yellow Urine Clarity Turbid H Clear Urine pH 6.5 5.0-9.0 Urine Specific [place] 1.013 1.001-1.035 Urine Protein Negative Negative Urine Ketones 2+ H Negative Urine Blood Negative Negative /uL Urine Nitrite Negative Negative Urine Bilirubin Negative Negative Urine Urobilinogen 2 H Negative mg/dL Urine Leukocyte Esterase Negative Negative /uL Urine RBC 1 0 - 4 /hpf Urine Microscopic WBC 2 0-5 /HPF Urine Squamous Epithelial Cells Mod <5 /hpf Urine Bacteria None seen None Seen /hpf Urine Mucus Few None Seen Urine Creatinine 83.70 30.0-125.0 mg/dL Urine Protein/Creatinine Ratio 0.28 Urine Glucose Normal Normal mg/dL POC Glucose 108 H 70-106 mg/dl Other Interventions Other Interventions Pt declines [facility] [place] [address] Ph: [phone] DIAGNOSTIC IMAGING Diagnostic Imaging Report : [id number] Signed PATIENT: ALFONSO PATE ACCT: [id number] UNIT: [id number] : 1980 LOC: [facility] ROOM / BED: [facility] / A AGE / SEX: 44 / F ADM STATUS: ADM IN SERVICE 1214 ORDERING PHYSICIAN: CARO CARABALLO CNM PROCEDURE(s): OBLTD - OBSTERICAL LIMITED REASON: cervical length ORDER NUMBER(s): [id number], ACCESSION NUMBER(s): [id number] LIMITED OB ULTRASOUND > 14 WKS: HISTORY: cervical length TECHNIQUE: Multiple real-time grayscale images of the gravid uterus with duplex Doppler color flow and M-mode spectral analysis. TRANSDUCER: TA FINDINGS: Anterior placenta. Cephalic presentation. heart rate 152 beats per minute. KARINA equals 26.9 cm. Cervix is closed measuring 3.3 cm. IMPRESSION: Cervix is closed measuring 3.3 cm. Polyhydramnios, KARINA equals 26.9 cm ATED BY: NATANAEL KEE MD DICTATED DATE/TIME: 04/14/25 1350 SIGNED BY: NATANAEL KEE MD SIGNED DATE/TIME: 04/14/25 135 CC: Condition on Discharge: Stable Disposition: Home Discharge Instructions: Diet: Consistent carbohydrate Activity: No Restrictions, As Tolerated Medications: see med list Follow Up Care: Specialist: f/u in 3 days Discharge Statement: "Patient was advised to return to the ER or call 911 if any headaches, dizziness, shortness of breath, chest pain, abdominal pain, bleeding, fevers, or worsening of medical condition. Patient was counseled about treatment plan, medications, possible side effects, patientverbalized understanding. All questions were answered to the best of my ability. This discharge took greater then 30 minutes in planning, reviewing documentation, counseling the patient, and discussing with other team members." Visit Coding OBGYN Date of Service: Apr 14, 2025 Billing Provider: CARO CARABALLO CNM MANNEQUIN MOUNTER Common Visit Codes: [id number] OBS CARE (HIGH) MANNEQUIN MOUNTER Procedure Codes: 76277-58- NON-STRESS TEST CARO CARABALLO CNM Apr 14, 2025 14:04
== END 2025-04-14 13:52 | disposition home or self-care (01) ==
LOC: LDRP 11:05 → UNDOADMOB 11:05 → LDRP 11:30 → UNDODISOB 13:52
PROVIDERS: ADMIT Obstetrics & Gynecology; ATTEND Obstetrics & Gynecology
DX: O24.419 Gestational diabetes mellitus in pregnancy, unspecified control (principal); O99.283 Endocrine, nutritional and metabolic diseases complicating pregnancy, third trimester; E03.9 Hypothyroidism, unspecified; O99.413 Diseases of the circulatory system complicating pregnancy, third trimester; I49.9 Cardiac arrhythmia, unspecified; O40.3XX0 Polyhydramnios, third trimester, not applicable or unspecified; Z3A.31 31 weeks gestation of pregnancy; Z98.890 Other specified postprocedural states; Z79.899 Other long term (current) drug therapy
CPT/HCPCS: 59025; 76815; 76817; 81001; 81002; 82570; 82948; 82962; 84156; 94760; G0378

== ENCOUNTER 2025-04-17 06:37 | Observation (INO) | payer MEDICAID ==
--- NOTE | 2025-04-18 08:40 | DVHDS2 ---
Physician Discharge Progress N Final Diagnosis: gdma2 30wks Operations or Procedures: Operations or Procedures nst reactive reviwed,sono Condition on Discharge: Good Disposition: Home Discharge Instructions: Diet: Regular Activity: No Restrictions, As Tolerated Medications: na Follow Up Care: Specialist: 3d Discharge Statement: "Patient was advised to return to the ER or call 911 if any headaches, dizziness, shortness of breath, chest pain, abdominal pain, bleeding, fevers, or worsening of medical condition. Patient was counseled about treatment plan, medications, possible side effects, patientverbalized understanding. All questions were answered to the best of my ability. This discharge took greater then 30 minutes in planning, reviewing document ation, counseling the patient, and discussing with other team members." Visit Coding OBGYN Date of Service: Apr 17, 2025 Billing Provider: SANDY MESSINA DO GEOTHERMAL PLANT MANAGER Common Visit Codes: 71719-[id number] OBS CARE (HIGH) GEOTHERMAL PLANT MANAGER Procedure Codes: 65743-37- NON-STRESS TEST SANDY MESSINA DO Apr 18, 2025 08:40
== END 2025-04-17 12:24 | disposition home or self-care (01) ==
LOC: LDRP 12:08
PROVIDERS: ADMIT Obstetrics & Gynecology; ATTEND Obstetrics & Gynecology
DX: O24.419 Gestational diabetes mellitus in pregnancy, unspecified control (principal); Z3A.30 30 weeks gestation of pregnancy; Z79.899 Other long term (current) drug therapy
CPT/HCPCS: 59025; 81002; 82948; 82962; G0378

== ENCOUNTER 2025-04-20 07:12 | Observation (INO) | payer MEDICAID ==
--- NOTE | 2025-04-20 16:47 | DVH ---
BIOPHYSICAL PROFILE HISTORY: GDMA2 Comparison: 04/07/2025 TECHNIQUE: Multiple transabdominal real-time grayscale sonographic images through the gravid uterus of the fetus with duplex Doppler color flow and M-mode spectral analysis FINDINGS: BIOPHYSICAL PROFILE: breathing score: 2 of 2 movement score: 2 of 2 tone score: 2 of 2 Quantitative KARINA score: 2 of 2 (KARINA: 28 Cm.) Total score: 8 of 8 The cervix closed Single live fetus in cephalic presentation. heart rate 147 beats per minute. anterior placenta without previa or abruption IMPRESSION: 1. Biophysical profile score: 8 of 8 2. There has been an increase in KARINA compared to previous exam from 22.6 to 28.7 cm
--- NOTE | 2025-04-21 13:40 | DVHDS2 ---
Physician Discharge Progress N Final Diagnosis: gdma2 Operations or Procedures: Operations or Procedures nst reactive reviwed,sono Condition on Discharge: Good Disposition: Home Discharge Instructions: Diet: Regular Activity: Light activity Medications: na Follow Up Care: Specialist: 3d Discharge Statement: "Patient was advised to return to the ER or call 911 if any headaches, dizziness, shortness of breath, chest pain, abdominal pain, bleeding, fevers, or worsening of medical condition. Patient was counseled about treatment plan, medications, possible side effects, patientverbalized understanding. All questions were answered to the best of my ability. This discharge took greater then 30 minutes in planning, reviewing documentation, counseling the patient, and discussing with other team members." Visit Coding OBGYN Date of Service: Apr 20, 2025 Billing Provider: SANDY MESSINA DO MAINTENANCE MECHANIC 2ND SHIFT Common Visit Codes: [id number] OBS CARE (HIGH) MAINTENANCE MECHANIC 2ND SHIFT Procedure Codes: 73660-69- NON-STRESS TEST SANDY MESSINA DO Apr 21, 2025 13:40
== END 2025-04-20 17:10 | disposition home or self-care (01) ==
LOC: UNDOADMOB 15:51 → LDRP 15:51 → UNDODISOB 17:10
PROVIDERS: ADMIT Obstetrics & Gynecology; ATTEND Obstetrics & Gynecology
DX: O24.419 Gestational diabetes mellitus in pregnancy, unspecified control (principal); Z3A.32 32 weeks gestation of pregnancy; Z98.890 Other specified postprocedural states; Z79.899 Other long term (current) drug therapy
CPT/HCPCS: 59025; 76819; 81002; 82948; G0378

== ENCOUNTER 2025-04-23 13:06 | Observation (INO) | payer MEDICAID ==
--- NOTE | 2025-04-23 15:23 | DVH ---
CLINICAL HISTORY: Gestational diabetes. COMPARISON: US BIOPHYSICAL PROFILE on DOS: 04/20/25, US BIOPHYSICAL PROFILE on DOS: 09/18/23, US BIOPHY SICAL PROFILE on DOS: 09/14/23 TECHNIQUE: biophysical profile was performed. Transabdominal sonographic images of the fetus we re obtained. FINDINGS: The fetus is in cephalic position. heart rate measures 138 BPM. Amniotic fluid index measures 29.7 cm. The placenta is anterior in position without visualized evidence for previa or abru ption. BPP profile is an overall score of 8/8, with 2/2 points for breathing, with at least one episode of breathing over a 30 second duration during a 30 minute observation, 2/2 points for m ovements, with 3 or more discrete body or limb movements, 2/2 points for tone, with one or more episodes of extremity extension with return to flexion, or opening and closing of hand, and 2/ 2 points for amniotic fluid, with at least 1 pocket of amniotic fluid that measures 2 cm in 2 perpend icular planes. IMPRESSION: 1. BPP score of 8/8. 2. Polyhydramnios with KARINA measuring 29.7 cm.
--- NOTE | 2025-04-23 15:35 | DVHDS2 ---
Physician Discharge Progress N Final Diagnosis: poly,gdm 32 wks Operations or Procedures: Operations or Procedures nst reactive reviwed,sono Condition on Discharge: Good Disposition: Home Discharge Instructions: Diet: Consistent carbohydrate Activity: No Restrictions, As Tolerated Medications: na Follow Up Care: Specialist: 3d Discharge Statement: "Patient was advised to return to the ER or call 911 if any headaches, dizziness, shortness of breath, chest pain, abdominal pain, bleeding, fevers, or worsening of medical condition. Patient was counseled about treatment plan, medications, possible side effects, patientverbalized understanding. All questions were answered to the best of my ability. This discharge took greater then 30 minutes in planning, reviewing documentation, counseling the patient, and discussing with other team members." Visit Coding OBGYN Date of Service: Apr 23, 2025 Billing Provider: SANDY MESSINA DO MARKSMANSHIP INSTRUCTOR Common Visit Codes: [id number] OBS CARE (HIGH) MARKSMANSHIP INSTRUCTOR Procedure Codes: 56553-71- NON-STRESS TEST SANDY MESSINA DO Apr 23, 2025 15:35
== END 2025-04-23 15:47 | disposition home or self-care (01) ==
LOC: LDRP 13:06
PROVIDERS: ADMIT Obstetrics & Gynecology; ATTEND Obstetrics & Gynecology
DX: O24.419 Gestational diabetes mellitus in pregnancy, unspecified control (principal); O40.3XX0 Polyhydramnios, third trimester, not applicable or unspecified; Z3A.32 32 weeks gestation of pregnancy; Z98.890 Other specified postprocedural states
CPT/HCPCS: 59025; 76819; 81002; 82948; 94760; G0378